=== PATIENT | female | born 1935 | race Caucasian/White ===

== ENCOUNTER 2022-09-03 10:32 | Outpatient (CLI) | payer MEDICARE | END 2022-09-03 10:33 | disposition home or self-care (01) | LOC: CSHCT 10:32 | PROVIDERS: ATTEND Neurological Surgery | DX: D49.6 Neoplasm of unspecified behavior of brain (principal); G93.9 Disorder of brain, unspecified; G93.6 Cerebral edema | CPT/HCPCS: 70450 ==